=== PATIENT | male | born 1945 | race Caucasian/White ===

== ENCOUNTER 2017-05-25 09:22 | Day surgery (SDC) | payer OTHER, BC ==
[2017-05-23 14:50] LABS: ANION GAP 11 mEq/L (8-16); CALCIUM 9.3 mg/dL (8.5-10.4); CARBON DIOXIDE 23 mEq/l (22-31); CHLORIDE 101 mEq/L (97-110); GLOMERULAR FILTRATION RATE 33; GLUCOSE 306 mg/dL (70-100); POTASSIUM 4.9 mEq/L (3.5-5.2); SODIUM 135 mEq/L (134-144)
--- NOTE | 2017-05-25 09:58 | PDANEPAE ---
ANE History of Present Illness EGD/Colonoscopy ANE Past Medical History - Cardiovascular History Hx Hypertension: No Hx Arrhythmias: No Hx Chest Pain: No Hx Coronary Artery / Peripheral Vascular Disease: No Hx CHF / Valvular Disease: No Hx Palpitations: No - Pulmonary History Hx COPD: No Hx Asthma/Reactive Airway Disease: No Hx Recent Upper Respiratory Infection: No Hx Oxygen in Use at Home: No Hx Sleep Apnea: No Sleep Apnea Screening Result - Last Documented: Positive - Neurologic History Hx Cerebrovascular Accident: No Hx Seizures: No Hx Dementia: No - Endocrine History Hx Diabetes: Yes Endocrine History Comment: DM 11 - Renal History Hx Renal Disorders: No - Liver History Hx Hepatic Disorders: No - Neurological & Psychiatric Hx Hx Neurological and Psychiatric Disorders: No - Cancer History Hx Cancer: No - Congenital Disorder History Hx Congenital Disorders: No - GI History Hx Gastrointestinal Disorders: No - Other Health History Other Health History: MISSING LOWER AND UPPER. teeth - Chronic Pain History Chronic Pain: No - Surgical History Prior Surgeries: AMPUTATION LEFT LEG BELOW KNEE 2012. L FX HIP 2003 L HIP REPLACEMENT ANE Review of Systems Review of Systems: - Exercise capacity METS (RN): 4 METS ANE Patient History - Allergies Allergies/Adverse Reactions: No Known Allergies Allergy (Verified 12/24/15 12:52) - Home Medications Home medications: home medication list seen and reviewed Home Medications: Glimepiride 2 mg PO BID 11/30/15 [Last Taken 12/23/15] Multivitamin 12/24/15 [Last Taken 12/23/15] - NPO status NPO Status: no food or drink >8 hours - Anes Hx Anes Hx: no prior problems - Smoking Hx Smoking Status: Former smoker (>25 years ago) - Alcohol Use Alcohol Use: Other (1/day) - Family Anes Hx Family Anes Hx: none Family Hx Anesthesia Complications: NEG ANE Labs/Vital Signs - Labs Result Diagrams: 05/23/17 13:43 - Vital Signs Blood Pressure: 155/99 Heart Rate: 91 Respiratory Rate: 16 O2 Sat (%): 94 Height: 175.26 cm Weight: 98.88 kg ANE Physical Exam - Airway Neck exam: FROM Mallampati Score: Class 2 Mouth exam: normal dental/mouth exam - Pulmonary Pulmonary: no respiratory distress - Cardiovascular Cardiovascular: regular rate and rhythym - ASA Status ASA Status: III ANE Anesthesia Plan Anesthesia Plan: GA with mask (R/B/A explained and pt agrees to proceed. IV Propofol)
[2017-05-25] MEDS ORDERED: ONDANSETRON 4 MG/2 ML VIAL ONE (10:07)
[2017-05-25] MEDS ORDERED: fentaNYL 100 MCG/2 ML INJ ONE (10:07)
[2017-05-25] MEDS ORDERED: LIDOCAINE 2% 100 MG/5 ML SYR ONE (10:07)
[2017-05-25] MEDS ORDERED: PROPOFOL/EMULSION 500 MG/50 ML BOTTLE IV ONE (10:07)
[2017-05-25] MEDS ORDERED: DEXAMETHASONE 4 MG/ML VIAL ONE (10:07)
--- NOTE | 2017-05-25 10:08 | PDGENHP ---
History & Physical Chief Complaint: diarrhea/nausea History of Present Illness: 71 year old male with a history of DM presents for evaluaton of cough, nausea, and diarrhea. Has a hx of complex right sided colonic polyps Pertinent Past, Social, Family History: PMHx: DM. FaMHx: Breast ca Relevant Physical Exam: HEENT: anicteric. CV: RRR +s1s2. Lungs: CTAB. Abd: soft, nt, + BS. Cardiorespiratory Assessment: ASA 2. Mall 2
[2017-05-25] MEDS ORDERED: LIDOCAINE 1% 2 ML INJ ID PRN (10:09)
[2017-05-25] MEDS ORDERED: INDOMETHACIN 50 MG SUPP PR PRN (10:09)
[2017-05-25] MEDS ORDERED: LR 1,000 ML IV ONE (10:09)
[2017-05-25] MEDS ORDERED: NS 500 ML IV SCH (10:15)
--- NOTE | 2017-05-25 10:20 | GIREPORT ---
[facility] [place] Surgical Services - Endoscopy Department Patient Name: Bladimir Mathews Procedure Date: 05/25/2017 9:51 AM Patient Type: Outpatient Attending MD/ ER Physician: Guillermo Mitchell MD Procedure: Upper GI endoscopy Indications: Chronic cough, Nausea Patient Profile: 71 year old male presents for evaluation of chronic cough/nausea Providers: Guillermo Mitchell MD Medicines: Monitored Anesthesia Care Complications: No immediate complications. Estimated blood loss: Minimal. Description of Procedure: After obtaining informed consent, the endoscope was passed under direct vision. Throughout the procedure, the patient's blood pressure, pulse, and oxygen saturations were monitored continuous ly. The Endoscope was introduced through the mouth, and advanced to the second part of duodenum. The upper GI endoscopy was accomplished without difficulty. The patient tolerated the procedure well . Findings: The examined esophagus was normal. Patchy mildly erythematous mucosa was found in the gastric body and in the gastric antrum. Biops ies were taken with a cold forceps for histology. A few small sessile polyps were found on the greater curvature of the stomach. Biopsies were zainab en with a cold forceps for histology. Many superficial duodenal ulcers with no stigmata of bleeding were found in the first portion of the duodenum. Biopsies were taken with a cold forceps for histology. Estimated Blood Loss: Estimated blood loss was minimal. Post Op Diagnosis: - Normal esophagus. - Erythematous mucosa in the gastric body and antrum. Biopsied. - A few gastric polyps. Biopsied. - Multiple superficial duodenal ulcers with no stigmata of bleeding. Biliary stress ulcers? Biop sied. Recommendation: - Perform a colonoscopy today. - Await pathology results. - Use a proton pump inhibitor PO BID. - Follow an antireflux regimen. - Avoid NSAIDs - Return to GI office in 6 weeks. - Check CMP - Thank you for allowing me to participate in the care of oy patients. Attending Participation: I personally performed the entire procedure. Guillermo Mitchell MD Guillermo Mitchell MD 05/25/2017 10:20:10 AM Number of Addenda: 0 Note Initiated On: 05/25/2017 9:51 AM Total Procedure Duration Time 0 hours 3 minutes 2 seconds [id number]
[2017-05-25] MEDS ORDERED: PROMETHAZINE HCL 25 MG/ML INJ IVP PRN (10:30)
[2017-05-25] MEDS ORDERED: NALOXONE HCL 0.4 MG/ML INJ IVP PRN (10:30)
[2017-05-25] MEDS ORDERED: fentaNYL 100 MCG/2 ML INJ IVP PRN (10:30)
[2017-05-25] MEDS ORDERED: ALBUTEROL 3 ML DEYVIAL IH PRN (10:30)
[2017-05-25] MEDS ORDERED: HYDROmorphONE/DILAUDID 1 MG/ML INJ IVP PRN (10:30)
[2017-05-25] MEDS ORDERED: ACETAMINOPHEN 500 MG TAB PO PRN (10:30)
[2017-05-25] MEDS ORDERED: METOCLOPRAMIDE 10 MG/2 ML VIAL IVP PRN (10:30)
[2017-05-25] MEDS ORDERED: MEPERIDINE 25 MG/ML SYR IVP PRN (10:30)
[2017-05-25] MEDS ORDERED: HYDROCODONE/APAP 5/325 TAB PO PRN (10:30)
[2017-05-25] MEDS ORDERED: OXYCODONE/APAP 5/325 TAB PO PRN (10:30)
[2017-05-25] MEDS ORDERED: DEXAMETHASONE 4 MG/ML VIAL IVP PRN (10:30)
[2017-05-25] MEDS ORDERED: LR 500 ML IV PRN (10:30)
[2017-05-25] MEDS ORDERED: ONDANSETRON 4 MG/2 ML VIAL IVP PRN (10:30)
[2017-05-25] MEDS ORDERED: LABETALOL HCL 50 MG/10 ML SYR IVP PRN (10:30)
[2017-05-25] MEDS ORDERED: epHEDrine SULFATE 10 MG/ML SYR ONE ×2 (10:34)
[2017-05-25] MEDS ORDERED: PROPOFOL 200 MG/20 ML VIAL ONE (10:46)
--- NOTE | 2017-05-25 11:50 | GIREPORT ---
[facility] Surgical Services - Endoscopy Department Patient Name: Bladimir Mathews Procedure Date: 05/25/2017 9:50 AM Patient Type: Outpatient Attending MD/ ER Physician: Guillermo Mitchell MD Procedure: Colonoscopy Indications: Diarrhea Patient Profile: 71 year old male with a history of complex polyps presents for evaluati on of diarrhea. Providers: Guillermo Mitchell MD Medicines: Monitored Anesthesia Care Complications: No immediate complications. Description of Procedure: After obtaining informed consent, the scope was passed under direct vision. Throughout the proce dure, the patient's blood pressure, pulse, and oxygen saturations were monitored continuously. The Colonoscope was introduced through the anus and advanced to the cecum, identified by appendiceal orifice and ileocecal valve. The colonoscopy was performed without difficulty. The patient norris ated the procedure well. The quality of the bowel preparation was good. The ileocecal valve, appendic eal orifice, and rectum were photographed. Findings: The perianal and digital rectal examinations were normal. Pertinent negatives include no palpabl e rectal lesions. Two sessile polyps were found in the rectum and sigmoid colon. The polyps were 3 to 4 mm in size . These polyps were removed with a cold snare. Resection and retrieval were complete. A 12 mm polyp was found in the ascending colon. The polyp was sessile and located at prior tatto o spot consistent with remnant polyp. The polyp was removed with a piecemeal technique using a hot snare. Resection and retrieval were complete. APC was utilized after resection. Biopsies for histology were taken with a cold forceps for evaluation of microscopic colitis. Estimated Blood Loss: Estimated blood loss was minimal. Post Op Diagnosis: - Two 3 to 4 mm polyps in the rectum and in the sigmoid colon, removed with a cold snare. The po lyp was located at the prior tattoo nain and is remnant polyp. Resected and retrieved. - One 12 mm polyp in the ascending colon. It was located at the prior tattoo spot consistent wit h remnant polyp. It was removed piecemeal using a hot snare. Resected and retrieved. - Biopsies were taken with a cold forceps for evaluation of microscopic colitis. Recommendation: - Discharge patient to home (with escort). - Resume previous diet. - Continue present medications. - Repeat colonoscopy in 1 year for surveillance due to piecemeal resection. - Await pathology results. - Thank you for allowing me to participate in the care of your patient. Attending Participation: I personally performed the entire procedure. Guillermo Mitchell MD Guillermo Mitchell MD 05/25/2017 11:49:27 AM Number of Addenda: 0 Note Initiated On: 05/25/2017 9:50 AM Total Procedure Duration Time 0 hours 35 minutes 14 seconds [email or web address]
--- NOTE | 2017-05-25 12:04 | POSTANESTH ---
Post Anesthetic Evaluation Cardiovascular Status: Normal, Stable Respiratory Status: Normal, Stable Level of Consciousness/Mental Status: Can Participate in Eval Pain Control: Adequate, Prn Tx Ordered Nausea/Vomiting Control: Adequate, Prn Tx Ordered Complications Possibly Related to Anesthesia: None Noted
[2017-05-25 12:12] VITALS: TEMP 97.7
[2017-05-25 12:16] VITALS: RESP 14
[2017-05-25 12:28] VITALS: BP 145/78; PULSE 97; O2SAT 93
== END 2017-05-25 12:51 | disposition home or self-care (01) ==
LOC: FSGY 09:22
PROVIDERS: ATTEND Internal Medicine Gastroenterology
PROC: 0DBN8ZX Excision of Sigmoid Colon, Via Natural or Artificial Opening Endoscopic, Diagnostic (ICD-10-PCS; principal; 2017-05-25 10:15)
PROC: 0DB68ZX Excision of Stomach, Via Natural or Artificial Opening Endoscopic, Diagnostic (ICD-10-PCS; principal; 2017-05-25 10:15)
PROC: 0DBK8ZX Excision of Ascending Colon, Via Natural or Artificial Opening Endoscopic, Diagnostic (ICD-10-PCS; principal; 2017-05-25 10:15)
PROC: 0DBP8ZX Excision of Rectum, Via Natural or Artificial Opening Endoscopic, Diagnostic (ICD-10-PCS; principal; 2017-05-25 10:15)
PROC: 0DB98ZX Excision of Duodenum, Via Natural or Artificial Opening Endoscopic, Diagnostic (ICD-10-PCS; principal; 2017-05-25 10:15)
DX: R19.7 Diarrhea, unspecified (principal); E11.9 Type 2 diabetes mellitus without complications; Z86.010 Personal history of colon polyps
CPT/HCPCS: J1100; J2001; J2405; J2704; J3010